=== PATIENT | female | born 1935 | race Caucasian/White ===

== ENCOUNTER 2016-10-02 17:32 | Emergency (ER) | payer OTHER ==
[~2016-10-02] VITALS: Ht 170.2 cm; Wt 81.7 kg
[2016-10-02 18:15] VITALS: BP 146/67
[2016-10-02] MEDS ORDERED: ARICEPT 5 MG TAB5 MG PO (18:17)
[2016-10-02] MEDS ORDERED: CELEXA10 MG PO (18:17)
[2016-10-02] MEDS ORDERED: NAMENDA 10 MG T10 MG PO (18:18)
[2016-10-02] MEDS ORDERED: MELATONIN3 MG PO (18:18)
[2016-10-02] MEDS ORDERED: HYDROCHLOROTHIA25 M2 PO (18:18)
[2016-10-02] MEDS ORDERED: RESTORIL7.5 MG PO (18:19)
[2016-10-02] MEDS ORDERED: RISAMINE OINTM113 GM TP (18:19)
[2016-10-02] MEDS ORDERED: REMERON15 MG PO (18:19)
== END 2016-10-02 18:49 | disposition home or self-care (01) ==
LOC: ER 17:32
DX: S01.01XA Laceration without foreign body of scalp, initial encounter (principal); Z88.0 Allergy status to penicillin; W18.30XA Fall on same level, unspecified, initial encounter; Y93.89 Activity, other specified; Y92.89 Other specified places as the place of occurrence of the external cause; Y99.9 Unspecified external cause status

== ENCOUNTER 2016-10-11 08:03 | Emergency (ER) | payer OTHER ==
[~2016-10-11] VITALS: Ht 162.6 cm; Wt 68.0 kg
--- NOTE | ~2016-10-11 | EKG ---
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 : 1935 Requested By: Tre King Order Number: [id number] MD: Ernie Chavis Measurements Intervals [place] Rate: 67 P: 17 NM: 157 QRS: 55 QRSD: 109 T: 71 QT: 526 QTc: 556 Interpretive Statements Sinus rhythm Abnormal T, probable ischemia, anterior leads Prolonged QT interval No previous ECG available for comparison Electronically Signed On 10-11-2016 13:55:16 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
[~2016-10-11 08:03] MED LIST: ARICEPT 5 MG TAB5 MG PO; CELEXA10 MG PO; HYDROCHLOROTHIA25 M2 PO; MELATONIN3 MG PO; NAMENDA 10 MG T10 MG PO; REMERON15 MG PO; RESTORIL7.5 MG PO; RISAMINE OINTM113 GM TP
[2016-10-11 08:50] LABS: ABSOLUTE NEUTROPHILS 3.2 thou/uL (1.4-8.2); BASOPHILS 0.9 % (0.0-2.0); EOSINOPHILS 3.2 % (0.0-3.0); HEMATOCRIT 38.6 % (37.0-47.0); LYMPHOCYTES 21.6 % (24.0-44.0); MCH 31.3 pg (26.0-34.0); MCHC 33.7 % (28.0-37.0); PLATELET COUNT 239 thou/uL (150-400); POLYS 64.3 % (36.0-66.0); RBC 4.15 mil/uL (4.20-5.00); RDW 13.9 % (10.5-14.5)
[2016-10-11 08:51] LABS: MANUAL DIFF NO
[2016-10-11 08:56] LABS: ANION GAP 6 mmol/L (7-16); BUN 8 mg/dL (7-18); CALCIUM 8.9 mg/dL (8.5-10.1); CHLORIDE 105 mmol/L (98-107); CO2 35 mmol/L (21-32); CREATININE 0.6 mg/dL (0.6-1.3); GLUCOSE 80 mg/dL (70-99); POTASSIUM 3.5 mmol/L (3.5-5.1); SODIUM 146 mmol/L (136-145)
[2016-10-11 09:05] LABS: ALKALINE PHOSPHATASE 80 U/L (46-116); SGOT 15 U/L (15-37); SGPT 19 U/L (30-65); TOTAL BILIRUBIN 0.9 mg/dL (<0.1-1.0); TOTAL PROTEIN 6.6 g/dL (6.4-8.2); TROPONIN-I < 0.04 ng/mL (<0.04-0.07)
[2016-10-11 09:57] LABS: URINE BILIRUBIN NEGATIVE (Negative); URINE BLOOD NEGATIVE (Negative); URINE COLOR YELLOW; URINE GLUCOSE-RANDOM* NEGATIVE (Negative); URINE KETONES NEGATIVE (Negative); URINE LEUKOCYTES-REFLEX NEGATIVE (Negative); URINE PROTEIN (DIPSTICK) NEGATIVE (Negative); URINE SPECIFIC GRAVITY 1.015 (1.003-1.035); URINE UROBILINOGEN 0.2 E.U./dl (0.2-1.0)
[2016-10-11 11:39] VITALS: BP 118/57
== END 2016-10-11 11:56 | disposition home or self-care (01) ==
LOC: ER 08:03
PROVIDERS: Emergency Medicine
DX: R53.1 Weakness (principal); Z48.02 Encounter for removal of sutures; G30.9 Alzheimer's disease, unspecified; I10 Essential (primary) hypertension; E78.5 Hyperlipidemia, unspecified; F32.9 Major depressive disorder, single episode, unspecified; F03.90 Unspecified dementia, unspecified severity, without behavioral disturbance, psychotic disturbance, mood disturbance, and anxiety; Z88.0 Allergy status to penicillin

== ENCOUNTER 2017-01-07 19:33 | Inpatient (IN) | payer OTHER ==
[~2017-01-07] VITALS: Ht 160 cm; Wt 41.7 kg
--- NOTE | ~2017-01-07 | EKG ---
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: BOAZ : 1935 Requested By: Cindy Larson Order Number: [id number] MD: Ernie Chavis Measurements Intervals [place] Rate: 75 P: 26 TN: 160 QRS: 70 QRSD: 109 T: 61 QT: 432 QTc: 483 Interpretive Statements Sinus rhythm Probable left ventricular hypertrophy Borderline prolonged QT interval Baseline wander in lead(s) V1 Compared to ECG 10/11/2016 08:54:15 T-wave abnormality less prominent Electronically Signed On 01-08-2017 8:35:34 CDT by Ernie Chavis [email or web address] <ELECTRONICALLY SIGNED> By: Ernie Chavis MD, [facility] 01/08/17 0835 15 15 Ernie Chavis MD, [facility] /EPI
[2017-01-07 23:21] LABS: HEMATOCRIT 39.6 % (37.0-47.0); HEMOGLOBIN 13.5 gm/dL (12.0-15.0); MCH 30.9 pg (26.0-34.0); MCHC 34.1 g/dL (28.0-37.0); MCV 90.6 fL (80.0-100.0); PLATELET COUNT 174 thou/uL (150-400); RBC 4.37 mil/uL (4.20-5.00); RDW 13.7 % (10.5-14.5); WBC 3.3 thou/uL (4.0-11.0)
[2017-01-07 23:23] LABS: MANUAL DIFF YES
[2017-01-07 23:40] LABS: ALKALINE PHOSPHATASE 77 U/L (46-116); ANION GAP 7 mmol/L (7-16); BUN 8 mg/dL (7-18); CALCIUM 8.2 mg/dL (8.5-10.1); CHLORIDE 102 mmol/L (98-107); CO2 31 mmol/L (21-32); CREATININE 0.5 mg/dL (0.6-1.0); GLUCOSE 88 mg/dL (74-106); NT-PRO BRAIN NAT PEPTIDE 52 pg/mL (<300); SGOT 23 U/L (15-37); SGPT 13 U/L (30-65); SODIUM 140 mmol/L (136-145); TOTAL BILIRUBIN 0.6 mg/dL (<0.1-1.0); TOTAL PROTEIN 6.8 g/dL (6.4-8.2); TROPONIN-I < 0.04 ng/mL (<0.04-0.07)
[2017-01-07 23:41] LABS: POTASSIUM 2.3 mmol/L (3.5-5.1)
[2017-01-08] VITALS (9 sets, daily range): BP systolic 142–152; BP diastolic 56–94
[2017-01-08 00:07] LABS: ABSOLUTE NEUTROPHILS 1.5 thou/uL (1.4-8.2); TOTAL CELL COUNT 100
[2017-01-08 00:40] LABS: URINE BILIRUBIN NEGATIVE (Negative); URINE BLOOD 3+ (Negative); URINE COLOR YELLOW; URINE GLUCOSE-RANDOM* NEGATIVE (Negative); URINE KETONES NEGATIVE (Negative); URINE NITRITE NEGATIVE (Negative); URINE PROTEIN (DIPSTICK) NEGATIVE (Negative); URINE UROBILINOGEN 0.2 E.U./dl (0.2-1.0)
[2017-01-08 00:54] LABS: SQUAMOUS 0-3 Few /LPF (0-3)
[2017-01-08 00:55] LABS: BACTERIA None Seen /HPF (None Seen); CASTS None Seen /LPF (None Seen); CRYSTALS None Seen /LPF (None Seen); URINE RBC >20 Many /HPF (0-2); URINE WBC None Seen /HPF (0-5)
[2017-01-08] MEDS ORDERED: CELEXA10 MG PO (02:27)
[2017-01-08] MEDS ORDERED: ARICEPT10 M1 PO (02:28)
[2017-01-08] MEDS ORDERED: HYDROCHLOROTHIA25 M2 PO (02:28)
[2017-01-08] MEDS ORDERED: IMODIUM A-D2 M1 PO (02:30)
[2017-01-08] MEDS ORDERED: MELATONIN3 MG PO (02:31)
[2017-01-08] MEDS ORDERED: REMERON15 MG PO (02:32)
[2017-01-08] MEDS ORDERED: NAMENDA 10 MG T10 MG PO (02:32)
[2017-01-08] MEDS ORDERED: RISAMINE OINTM113 GM TP ×2 (02:35→02:36)
[2017-01-08] MEDS ORDERED: RESTORIL7.5 MG PO (02:36)
[2017-01-09 04:35] VITALS: BP 144/64
[2017-01-09 06:06] LABS: CALCIUM 7.7 mg/dL (8.5-10.1); CREATININE 0.4 mg/dL (0.6-1.0); POTASSIUM 3.6 mmol/L (3.5-5.1)
[2017-01-09 08:00] VITALS: BP 134/83
[2017-01-09 09:41] VITALS: BP 134/83
[2017-01-09] MEDS ORDERED: NORVASC10 MG PO (11:15)
[2017-01-09] MEDS ORDERED: ZYPREXA2.5 MG PO (11:18)
== END 2017-01-09 13:15 | DRG 70 ==
LOC: ER 19:33 → EROBS 23:55 → 4W 23:55
PROVIDERS: Family Medicine; Nurse Practitioner Family
DX: G93.41 Metabolic encephalopathy (principal); E43 Unspecified severe protein-calorie malnutrition; N39.0 Urinary tract infection, site not specified; F02.81 Dementia in other diseases classified elsewhere, unspecified severity, with behavioral disturbance; Z68.1 Body mass index [BMI] 19.9 or less, adult; G30.9 Alzheimer's disease, unspecified; I10 Essential (primary) hypertension; E78.5 Hyperlipidemia, unspecified; F32.9 Major depressive disorder, single episode, unspecified; E87.6 Hypokalemia; E86.0 Dehydration; N93.9 Abnormal uterine and vaginal bleeding, unspecified; R41.0 Disorientation, unspecified; Z88.0 Allergy status to penicillin
CPT/HCPCS: 10045